=== PATIENT | female | born 1940 | race Caucasian/White ===

== ENCOUNTER → 2020-03-20 | Outpatient (CLI) | payer MEDICARE, OTHER ==
[~2020-03-20] MED LIST: 00186-0370-20 IH; AMOXICILLIN 8751 TAB PO; ASPIRIN 32325 MG/TAB PO; ATROVENT I0.2 MG/1 M IH; AZOR 5 MG-40 MG1 TAB PO; CALCIUM 600MG+D1 TAB PO; CLARITIN 1010 MG/TAB PO; COZAAR 25MG25 MG/TAB PO; CYMBALTA 30MG30 MG PO; DIFLUCAN200 MG PO; DOXYCYCLINE 10100 MG PO; LEVAQUIN 5500 MG/TA1 PO; MUCINEX 60600 MG/TA1 PO; NAPROSYN 2250 MG/TAB PO; OMEGA-3 FISH1000 MG PO; PERFOROMIS20 MCG/2 M IH; PLAVIX 75MG TAB75 MG PO; PRAVACHOL 40MG40 MG PO; PREDNISONE20 MG PO; PRILOSEC 20MG20 MG PO; PROTONIX 40MG T40 MG PO; SINGULAIR 110 MG/TAB PO; SUDAFED30 MG PO; TAPAZOLE10 MG PO; TENORMIN 5050 MG/TAB PO; TYLENOL 8 HR PO; TYLENOL PM EXTR1 TA1 PO; VITAMIN C500 MG PO; [UNRECOGNIZED DRUG - OTHER] PO; [UNRECOGNIZED DRUG - OTHER] PO
== END ==
LOC: COL.VAS 10:05
DX: I08.1 Rheumatic disorders of both mitral and tricuspid valves (principal)